=== PATIENT | male | born 1955 | race Caucasian/White ===

== ENCOUNTER → 2017-10-01 | Outpatient (CLI) | payer OTHER ==
--- NOTE | 2017-10-01 18:40 | EXERCISE STRESS TEST ---
PROCEDURE: Treadmill stress test. This was a symptom-limited maximal stress test performed using the Tod protocol. The baseline rhythm was sinus with no significant ST deviation. He exercised for just over 8 minutes (into stage III) and achieved a maximal heart rate of 160 beats per minute which is 101% of his predicted maximal heart rate. There were no ST-T abnormalities identified during the stress test or during recovery. His blood pressure was hypertensive during the test, reaching a peak of 194/94 during stage III of the test.
== END | disposition home or self-care (01) ==
LOC: C.CPL 08:33
PROVIDERS: ATTEND Physician Assistant
DX: I10 Essential (primary) hypertension (principal)